=== PATIENT | male | born 1945 | race Caucasian/White ===

== ENCOUNTER 2017-01-08 01:47 | Inpatient (IN) | payer MEDICARE, BC ==
--- NOTE | ~2017-01-08 | DS ---
Unit #: [id number] #: [id number] Patient: JENNIFER PACK [id number] [address] [address] [id number] I MR#: [id number] NAME: JENNIFER PACK ROOM: 240 Age: 71 Sex: M Admission Date: 01/08/2017 : 1945 Discharge Date: 01/10/2017 Attending Physician: Manuela Fontaine M.D. Primary Care Physician: No Primary Care Physician DISCHARGE SUMMARY DIAGNOSIS ON ADMISSION Acute pyelonephritis. DIAGNOSES ON DISCHARGE 1. Acute pyelonephritis secondary to Escherichia coli. 2. Benign prostatic hypertrophy. 3. History of recurrent urinary tract infections. 4. Type [address] Galvan in urology consultation. DIAGNOSTIC STUDIES IMAGING: The patient had a CT scan of abdomen and pelvis done, which revealed mild perinephric stranding around both renal collecting systems and ureters and mild wall thickening of urinary bladder. LABS: Urine culture was positive for E-coli. The patient's creatinine is 0.8, sodium 141, potassium 4.2. WBC is 7.6, hemoglobin 12.7, platelet count 211. Urinalysis revealed 25-50 WBCs. HOSPITAL COURSE This 71-year-old male was admitted to the hospital with acute pyelonephritis. Details are as per admission H and P. The patient was seen by Dr. Galvan and group in consultation who started the patient on Flomax. The patient is feeling much better and is afebrile and wants to go home. The patient has acute pyelonephritis secondary to E-coli. RECOMMENDATIONS ON DISCHARGE 1. Condition is stable. 2. Activity is as tolerated. DISCHARGE MEDICATIONS 1. Flomax 0.4 mg p.o. daily. 2. Neurontin 200 mg p.o. t.i.d. 3. Metformin 500 mg p.o. b.i.d. Resume in 3 days. 4. Lopressor 25 mg p.o. b.i.d. 5. Lipitor 20 mg p.o. q.h.s. 6. Lisinopril 10 mg p.o. daily. 7. Allopurinol 100 mg p.o. daily. 8. Prilosec 20 mg p.o. daily. 9. Flexeril 10 mg p.o. daily p.r.n. 10. Omnicef 300 mg p.o. b.i.d. I will discuss with Dr. Galvan about the duration of the patient's antibiotic. Unit #: [id number] #: [id number] Patient: JENNIFER PACK FOLLOW-UP 1. The patient is advised to follow up with primary care physician in 1 week. 2. Follow up with Dr. Jelani Galvan as recommended. 3. The plan was discussed with the patient's and daughter, and they were advised to call primary care physician or go to ER if his condition changes. NOTE: The plan was discussed in detail with the patient's and daughter, and they showed complete understanding. Dictated by... Diana Grier TD: 01/10/2017 14:30 JOB #: [id number] CC: Luis Galvan M.D. DISCHARGE SUMMARY Page 1 of 1 X Lidia Recinos MD X DISCHARGE SUMMARY
--- NOTE | ~2017-01-08 | CO ---
Unit #: [id number] #: [id number] Patient: JENNIFER PACK [id number] [address] [place], [place] [address] [id number] I MR#: [id number] NAME: JENNIFER PACK ROOM: 240 Age: 71 Sex: M Admission Date: 01/08/2017 : 1945 Attending Physician: Manulea Fontaine M.D. Primary Care Physician: Primary Care Physician No Consultation Date: 01/08/2017 CONSULTATION REPORT CHIEF COMPLAINT Burning with urination. HISTORY OF PRESENT ILLNESS Mr. Pack is a 71-year-old gentleman with a history of x3 UTIs and since 10/2016 he has a history of BPH. On one episode, he had fevers and some chills. The most recent report having severe pain and burning with urination and pelvic pain. The patient came to emergency room and evaluated and had some pain in his right and left lower back, better with pain medication. Frequent urination. The pain was not worse with urination in his back. He denies gross hematuria. PAST MEDICAL HISTORY Diabetes, right leg surgery, hand surgery, back surgery, hypertension, UTIs. FAMILY HISTORY Negative for urologic problems. SOCIAL HISTORY He used to smoke, but does not now. ALLERGIES Codeine and ibuprofen. MEDICATIONS At home, Lipitor, Flomax 0.4 mg, metformin, lisinopril, gabapentin, Flexeril, allopurinol, Lopressor, Prilosec, Levaquin. REVIEW OF SYSTEMS Negative for 10 symptoms except for pain with urination. PHYSICAL EXAMINATION VITAL SIGNS: Stable. He is afebrile. HEENT: Pupils equal, reactive to light. NECK: Supple. HEART: Benign. LUNGS: Benign. ABDOMEN: Soft, nontender. Normal external genitalia. Prostate is soft without tenderness. No bogginess. DIAGNOSTIC STUDIES LABORATORY RESULTS: White blood cell count 11.3. Urinalysis shows positive for leukocytes and positive for bacteria. There are no nitrites. Unit #: [id number] #: [id number] Patient: JENNIFER PACK Creatinine 0.8. Urine culture is pending. IMAGING STUDIES: CT scan shows stranding around both kidneys and bladder. There is no hydronephrosis. There are no stones. ASSESSMENT Pyelonephritis. Benign prostatic hyperplasia. Urine culture is pending. We will increase his Flomax, we start him on 0.8 mg daily and also obtain a PSA. The patient will likely need may be 6 weeks of antibiotics. Dictated by... Diana Andrade/marilu TD: 01/09/2017 02:19 JOB #: [id number] CONSULTATION REPORT Page 1 of 1 X Luis Galvan MD X CONSULTATION REPORT
--- NOTE | ~2017-01-08 | CT2 ---
[facility] A Service of [facility] RADIOLOGY TEXT RESULTS PATIENT: JENNIFER PACK LOCATION: [facility] 240-01 : [birth year] UNIT #: [id number] AGE: [address]: Manuela Fontaine MD SEX: M ORDER DR: [id number] [facility] [place], [place] [address] [id number] I MR#: [id number] Acc #: [id number] NAME: JENNIFER PACK : 1945 SEX: M STUDY DATE/TIME: 01/08/2017 6:02 UNIT: CEDOF ROOM: 680[address] STUDY DESCRIPTION: CT Abd and Pelv W Cont Attending Physician: Manuela Fontaine M.D. Ordering Physician: Sam August M.D. Primary Care Physician: Primary Care Physician No MEDICAL IMAGING REPORT This report is preliminary unless electronic signature is present EXAM CT abdomen and pelvis INDICATION Severe abdominal cramping. Lower abdominal pain and bilateral flank pain for [address] of the abdomen and pelvis utilizing 100 mL Isovue-370 IV contrast. Coronal and sagittal reconstructions were obtained. This CT exam was performed with one or more of the following radiation dose reduction techniques: automatic exposure control, adjustment of mA and/or kV according to patient size, and iterative reconstruction. COMPARISON None available FINDINGS There is a small cyst in the liver. Gallbladder is not distended. The pancreas and spleen are within normal limits. There is a 2.4 cm nodule in the left adrenal gland consistent with a benign adenoma. This is unchanged from a 2007 CT of the chest. There is abnormal perinephric stranding associated with both kidneys as well as abnormal enhancement of the renal collecting systems and ureters. This is most commonly seen in association with ascending urinary tract infection. Correlation with urinalysis is requested to confirm. There is a benign cyst in the superior left kidney. There is a small 2.0 mm nonobstructing calculus in the superior pole left kidney. The bowel is not dilated. There is left-sided colonic diverticulosis, however no diverticulitis. The appendix is normal. [facility] A Service of [facility] RADIOLOGY TEXT RESULTS PATIENT: JENNIFER PACK LOCATION: [facility] 240-01 : [birth year] UNIT #: [id number] AGE: [address]: Manuela Fontaine MD SEX: M ORDER DR: The abdominal aorta is normal in caliber. PELVIS: Mild bladder wall thickening is typically seen with acute cystitis . No enlarged pelvic or inguinal lymph nodes. No acute osseous abnormalities. IMPRESSION 1. Mild perinephric stranding, abnormal enhancement and inflammatory stranding associated with both renal collecting systems and both ureters, and mild wall thickening of the urinary bladder. These findings are typically associated with cystitis and ascending urinary tract infection, however confirmation with urinalysis is requested to confirm. 2. Benign left adrenal adenoma is unchanged from a 2006 CT of the chest. 3. Diverticulosis. Dictated by... Lázaro Dean M.D. THIS IS AN ELECTRONICALLY VERIFIED REPORT Lázaro Dean M.D. at 01/08/2017 3:08 PM Adam TD: 01/08/2017 08:49 JOB #: [id number] MEDICAL IMAGING REPORT Page 1 of 1 COPY
--- NOTE | ~2017-01-08 | DS ---
Unit #: [id number] #: [id number] Patient: JENNIFER PACK [id number] [address] [address] [id number] I MR#: [id number] NAME: JENNIFER PACK ROOM: 240 Age: 71 Sex: M Admission Date: 01/08/2017 : 1945 Discharge Date: 01/10/2017 Attending Physician: Manuela Fontaine M.D. Primary Care Physician: No Primary Care Physician DISCHARGE SUMMARY ADDENDUM I called and discussed with Dr. Galvan, who thought that the patient should be treated with Omnicef for at least 3 weeks until he sees him in the office. He states that the patient is having these recurrent UTIs and is probably undertreated. The plan was discussed with the patient and his family, and they showed complete understanding. He was advised to eat yogurt daily and will be discharged on Lactinex to decrease the risk of C. diff. infection. Dictated by... Diana Grier/trenton TD: 01/10/2017 14:43 JOB #: [id number] DISCHARGE SUMMARY Page 1 of 1 X Lidia Recinos MD X DISCHARGE SUMMARY
--- NOTE | ~2017-01-08 | HP ---
Unit #: [id number] #: [id number] Patient: JENNIFER PACK [id number] [address] [address] [id number] I MR#: [id number] NAME: JENNIFER PACK ROOM: 240 Age: 71 Sex: M Admission Date: 01/08/2017 : 1945 Attending Physician: Manuela Fontaine M.D. Primary Care Physician: No Primary Care Physician HISTORY AND PHYSICAL CHIEF COMPLAINT Abdominal pain. HISTORY OF PRESENT ILLNESS A 71 year old with history of diabetes, admitted because of abdominal pain. According to him, it started two days prior to the admission, mostly both sides lower back and mostly on the right side, radiating to his groin, constant, relieved after pain medicine, associated with burning of urine. No blood in urine. No fever. No chills. No nausea, vomiting, syncope, dizziness. No bowel changes. PAST MEDICAL HISTORY 1. History of recurrent urinary tract infection, last one was December 28, according to him. He was on Levaquin. 2. Hypertension. 3. Diabetes mellitus type 2 on metformin. 4. History of back surgery in 1996 and 2007. 5. History of right hand carpal surgery. 6. History of right leg weakness from back surgery complication. FAMILY HISTORY Positive for father having kidney problems. SOCIAL HISTORY Ex-smoker, quit 30 years ago. No alcohol. No drugs. ALLERGIES Codeine and ibuprofen. DISCHARGE MEDICATIONS 1. Levaquin 500 p.o. daily. 2. Prilosec 20 daily. 3. Lopressor 25 p.o. b.i.d. 4. Allopurinol 100 daily. 5. Flexeril 10 mg p.o. daily. 6. Gabapentin 200 three times daily. 7. Lisinopril 10 daily. 8. Metformin 500 p.o. b.i.d. 9. Flomax 0.4 daily. 10. Lipitor 20 daily. REVIEW OF SYSTEMS No headache. No visual changes. No weakness, numbness, tingling. Reviewed 12-point system with him which is negative except as in HPI. Unit #: [id number] #: [id number] Patient: JENNIFER PACK PHYSICAL EXAMINATION VITAL SIGNS: Temperature 98, pulse 88, respirations 18, blood pressure 120/60. GENERAL: A 71 year old sitting on bed, not in acute distress, able to provide history. Alert and oriented x3. HEENT: Pupils equally reactive to light and accommodation. No pallor. No icterus. Dry mucosa present. NECK: Supple. HEART: S1, S2 heard. Regular. There are no murmurs. LUNGS: Clear to auscultation. ABDOMEN: Soft, nontender. Bowel sounds are present. EXTREMITIES: No pedal edema. SKIN: No rash. NEUROLOGIC: Nonfocal. DIAGNOSTIC STUDIES LABORATORY: WBC 11.3, hemoglobin 13.2, platelets 214,000. Sodium 136, potassium 3.8, creatinine 0.8. Liver enzymes normal. Urinalysis shows WBC 25-50. Lactic acid 1.4. Blood sugar 129. IMAGING: CT abdomen and pelvis shows mild perinephric stranding associated with both renal collecting systems. ASSESSMENT AND PLAN A 71 year old admitted because of abdominal pain. 1. Acute pyelonephritis, right greater than left with urinary tract infection. Send urine cultures, blood cultures. Start on IV Rocephin. Urology to see because of multiple urinary tract infections. 2. Hypertension: Controlled with home medications and monitor. 3. Diabetes: Continue with Accu-Cheks a.c. and at bedtime and low-dose sliding scale. Will follow. Dictated by Diana Llamas/marleen TD: 01/08/2017 14:22 JOB #: [id number] HISTORY AND PHYSICAL Page 1 of 1 X Manuela Fontaine MD X HISTORY AND PHYSICAL
[2017-01-08 04:29] LABS: BASOPHIL% 0.2 % (0-2.5); EOSINOPHIL# 0.1 X10e3 (0-0.7); EOSINOPHIL% 0.6 % (0.0-7.0); HEMOGLOBIN 13.2 gm/dL (13.0-16.0); LYMPHOCYTE# 1.3 X10e3 (1.0-3.5); LYMPHOCYTE% 11.2 % (17.0-45.0); MEAN CELL VOLUME 88.4 FL (83-96); MEAN CORPUSCULAR HEMOGLOBIN 29.2 PG (28-34); MEAN PLATELET VOLUME 8.1 FL (6.5-11.5); MONOCYTE# 0.7 X10e3 (0-1.0); MONOCYTE% 5.9 % (3.0-12.0); NEUTROPHIL# 9.3 X10e3 (1.5-7.1); NEUTROPHIL% 82.1 % (40-75); PLATELET COUNT 214 X10e3 (140-420); RED BLOOD COUNT 4.53 X10e (3.90-5.60); RED CELL DISTRIBUTION WIDTH 14.5 % (11.0-15.5); WHITE BLOOD COUNT 11.3 X10e3 (4.0-10.5)
[2017-01-08 04:33] LABS: DIFF IND NO
[2017-01-08 04:52] LABS: URINE SOURCE CLEAN CATCH
[2017-01-08 05:09] LABS: BILIRUBIN, DIRECT 0.2 mg/dL (0.0-0.2); BILIRUBIN,INDIRECT 0.8 mg/dL (0.0-0.9); BUN/CREATININE RATIO 22.5; CALCIUM SERUM 9.3 mg/dL (8.4-10.2); CREATININE SERUM 0.8 mg/dL (0.6-1.4); GLOM FILT RATE Estimated 90.5 mL/min (>60); POTASSIUM 3.8 mmol/L (3.5-5.1); PROTEIN TOTAL SERUM 7.5 g/dL (6.0-8.3)
[2017-01-08 05:36] LABS: URINE APPEARANCE SL HAZY; URINE COLOR STRAW; URINE LEUKOCYTE ESTERASE 3+ (NEG); URINE NITRATE NEG (NEG); URINE PROTEIN 1+ (NEG); URINE SPECIFIC GRAVITY 1.005 (1.003-1.035)
[2017-01-08 05:37] LABS: URINE BILIRUBIN NEG (NEG); URINE BLOOD 2+ (NEG); URINE GLUCOSE NORM (NEG); URINE KETONE NEG (NEG); URINE UROBILINOGEN NORM (NEG)
[2017-01-08 05:38] LABS: CULTURE INDICATED? YES; URINE BACTERIA AUWI 3+ (NEGATIVE); URINE SQUAMOUS EPITHELIAL CELL OCCAS /[HPF]; UWBCS1 AUWI 25-50 (0-5)
[2017-01-08] MEDS ORDERED: ZYLOPRIM100 MG PO (09:41)
[2017-01-08] MEDS ORDERED: PATIENT'S PHARMACY (09:41)
[2017-01-08] MEDS ORDERED: LOPRESSOR PO (09:41)
[2017-01-08] MEDS ORDERED: LEVAQUIN PO (09:41)
[2017-01-08] MEDS ORDERED: PRILOSEC PO (09:41)
[2017-01-08] MEDS ORDERED: LIPITOR20 MG PO (09:42)
[2017-01-08] MEDS ORDERED: LISINOPRIL PO (09:42)
[2017-01-08] MEDS ORDERED: GABAPENTIN300 M2 PO (09:42)
[2017-01-08] MEDS ORDERED: METFORMIN PO (09:42)
[2017-01-08] MEDS ORDERED: FLOMAX0.4 M1 PO (09:42)
[2017-01-08] MEDS ORDERED: FLEXERIL10 MG PO (09:44)
[2017-01-09 05:48] LABS: HEMATOCRIT 38.6 % (38.0-50.0); HEMOGLOBIN 12.7 gm/dL (13.0-16.0); MEAN CELL VOLUME 89.4 FL (83-96); MEAN CORPUSCULAR HEMOGLOBIN 29.4 PG (28-34); MEAN CORPUSCULAR HGB CONC 32.9 g/dL (30-36); MEAN PLATELET VOLUME 7.7 FL (6.5-11.5); RED BLOOD COUNT 4.32 X10e (3.90-5.60); RED CELL DISTRIBUTION WIDTH 14.4 % (11.0-15.5); WHITE BLOOD COUNT 7.6 X10e3 (4.0-10.5)
[2017-01-09 06:51] LABS: BUN/CREATININE RATIO 17.5; CALCIUM SERUM 8.9 mg/dL (8.4-10.2); CREATININE SERUM 0.8 mg/dL (0.6-1.4); GLOM FILT RATE Estimated 90.5 mL/min (>60); POTASSIUM 4.2 mmol/L (3.5-5.1)
[2017-01-10] MEDS ORDERED: NEURONTIN100 MG PO (10:51)
[2017-01-10] MEDS ORDERED: OMNICEF300 M1 PO (10:55)
[2017-01-10] MEDS ORDERED: DAIRY DIGES3000 UNI1 PO (10:56)
== END 2017-01-10 11:21 | disposition home or self-care (01) | DRG 690 ==
LOC: CED 01:47 → CEDOF 07:12 → CED 07:35 → CEDOF 07:35 → C2A 12:03
PROVIDERS: Emergency Medicine; Internal Medicine
DX: N10 Acute pyelonephritis (principal); E11.9 Type 2 diabetes mellitus without complications; B96.20 Unspecified Escherichia coli [E. coli] as the cause of diseases classified elsewhere; N40.0 Benign prostatic hyperplasia without lower urinary tract symptoms; I10 Essential (primary) hypertension; Z79.84 Long term (current) use of oral hypoglycemic drugs; Z87.891 Personal history of nicotine dependence; Z88.6 Allergy status to analgesic agent; Z88.5 Allergy status to narcotic agent; Z87.440 Personal history of urinary (tract) infections
CPT/HCPCS: 36415; 74177; 80048; 80076; 81003; 82947; 83605; 83690; 84153; 85025; 85027; 87040; 87086; 87088; 87186; 99285; J0696; J1815; Q9967